=== PATIENT | male | born 1965 | race Caucasian/White ===

== ENCOUNTER 2017-12-26 11:55 | Emergency (ER) | payer MEDICARE, MEDICAID ==
[~2017-12-26] VITALS: Ht 177.8 cm; Wt 92.7 kg
[~2017-12-26 11:55] MED LIST: BENZ1TAB7 PO; BISA10SU60 RC; BUPR150T6 PO; DEXT20TA6 PO; FLUC200T8 PO; GOLYS PO; LURA60TA2 PO; MAGN296S50 PO; MAGN400O6 PO; METF-438 PO; MIRT30TA8 PO; OMEP20TA5 PO; TEMA30CA5 PO; TEST200V10 IM
[2017-12-26 13:10] VITALS: BP 135/75
[2017-12-26 13:10] LABS: CLARITY,URINE SLIGHTLY CLOUDY (Clear); COLOR,URINE YELLOW (Yellow); GLUCOSE, URINE NEGATIVE (Neg); KETONES,URINE NEGATIVE (Neg); LEUKOCYTE ESTERASE ,URINE MODERATE (Neg); NITRITES, URINE POSITIVE (Neg); OCCULT BLOOD,URINE LARGE (Neg); PH,URINE 5.5 (4.8-8.0); PROTEIN,URINE NEGATIVE (Neg); UROBILINOGEN,URINE 0.2 E.U/dL (0.2-1.0)
[2017-12-26 13:11] LABS: ALANINE AMINOTRANSFERASE 36 U/L (12-78); ALBUMIN/GLOBULIN RATIO 0.9 (1.1-1.5); ALKALINE PHOSPHATASE 104 IU/L (46-116); ANION GAP 6 (8-16); ASPARTATE AMINO TRANSFERASE 28 U/L (10-37); BILIRUBIN,TOTAL 0.2 MG/DL (0.1-1.0); BLOOD UREA NITROGEN 9 MG/DL (7-18); BUN/CREATININE RATIO 11.8 (5.4-32.0); CALCIUM 8.7 MG/DL (8.5-10.1); CHLORIDE 100 MMOL/L (99-107); CREATININE 0.76 MG/DL (0.60-1.10); GLUCOSE 124 MG/DL (70-104); POTASSIUM 4.2 MMOL/L (3.5-5.1); SODIUM 135 MMOL/L (135-145); TOTAL CARBON DIOXIDE 29.3 MMOL/L (24-32); TOTAL PROTEIN 6.5 G/DL (6.4-8.2); eGFR > 90 ML/MIN
[2017-12-26 13:12] LABS: UA COLLECTION TYPE CLN CATCH MIDSTREAM
[2017-12-26 13:14] LABS: PARTIAL THROMBOPLASTIN TIME 28 SECONDS (22-32)
[2017-12-26 13:24] LABS: BACTERIA,URINE 4+ /HPF (Neg); SQUAMOUS EPITHELIAL CELL,UR FEW /LPF (FEW)
[2017-12-26 13:25] LABS: WBC,URINE 20-30 /HPF (0-4)
[2017-12-26 13:36] LABS: BASOPHILS % (AUTO) 0.2 % (0-1); EOSINOPHILS # (AUTO) 0.5 X10'3 (0-0.9); EOSINOPHILS % (AUTO) 3.3 % (0-6); HEMOGLOBIN 15.3 g/dl (14.0-17.9); LYMPHOCYTES # (AUTO) 1.5 X10'3 (1.1-4.8); LYMPHOCYTES % (AUTO) 10.3 % (21-51); MEAN CORPUSCULAR HGB CONC 33.3 % (33.0-36.5); MEAN PLATELET VOLUME 7.6 FL (7.4-10.4); MONOCYTES % (AUTO) 6.6 % (2-12); NEUTROPHILS # (AUTO) 11.7 X10'3 (1.8-7.7); NEUTROPHILS % (AUTO) 79.6 % (42-75); PLATELET COUNT 289 X10'3 (140-440); RED BLOOD COUNT 5.29 X10'6 (4.70-6.10); RED CELL DISTRIBUTION WIDTH 15.4 % (11.5-14.5); WHITE BLOOD COUNT 14.7 X10'3 (4.5-11.0)
[2017-12-26] MEDS ORDERED: CefTRIAXone 2gm/D5W 50ml 50 ML IV ONE (13:40)
[2017-12-26] MEDS ORDERED: CEPH-572 PO (13:44)
== END 2017-12-26 14:28 | disposition home or self-care (01) ==
LOC: ER 11:56
DX: N39.0 Urinary tract infection, site not specified (principal); R31.9 Hematuria, unspecified; E78.00 Pure hypercholesterolemia, unspecified; K21.9 Gastro-esophageal reflux disease without esophagitis; E11.9 Type 2 diabetes mellitus without complications; Z98.890 Other specified postprocedural states; Z88.5 Allergy status to narcotic agent; Z88.8 Allergy status to other drugs, medicaments and biological substances; Z79.899 Other long term (current) drug therapy; Z88.6 Allergy status to analgesic agent
CPT/HCPCS: 36415; 80053; 81001; 85025; 85610; 85730; 87077; 87088; 87186; 96365; 99285; J0696

== ENCOUNTER 2023-06-02 08:24 | Day surgery (SDC) | payer BC, MEDICAID ==
[2023-05-31 15:54] LABS: BASOPHILS # (AUTO) 0.1 X10'3 (0-0.2); BASOPHILS % (AUTO) 1.1 % (0-1); EOSINOPHILS # (AUTO) 0.5 X10'3 (0-0.9); EOSINOPHILS % (AUTO) 5.5 % (0-6); LYMPHOCYTES # (AUTO) 1.9 X10'3 (1.1-4.8); LYMPHOCYTES % (AUTO) 21.6 % (21-51); MEAN CORPUSCULAR HEMOGLOBIN 33.3 PG (27.0-31.0); MEAN CORPUSCULAR HGB CONC 34.2 g/dL (33.0-36.5); MEAN CORPUSCULAR VOLUME 97.6 FL (78-98); MEAN PLATELET VOLUME 7.3 FL (7.4-10.4); MONOCYTES # (AUTO) 0.9 X10'3 (0-0.9); MONOCYTES % (AUTO) 10.1 % (2-12); NEUTROPHILS # (AUTO) 5.3 X10'3 (1.8-7.7); NEUTROPHILS % (AUTO) 61.7 % (42-75); PRE OP HEMATOCRIT 44.8 % (42.0-52.0); PRE OP HEMOGLOBIN 15.3 g/dL (14.0-17.9); PRE OP PLATELET COUNT 241 X10'3 (140-440); PRE OP WHITE BLOOD COUNT 8.6 10'3 (4.8-10.8); RED BLOOD COUNT 4.59 X10'6 (4.70-6.10); RED CELL DISTRIBUTION WIDTH 13.6 % (11.5-14.5)
[2023-05-31 16:10] LABS: ALBUMIN 3.5 G/DL (3.4-5.0); ALBUMIN/GLOBULIN RATIO 1.1 (1.1-1.5); ALKALINE PHOSPHATASE 98 IU/L (46-116); BLOOD UREA NITROGEN 7 MG/DL (7-18); BUN/CREATININE RATIO 8.2 (10.0-20.0); CALCIUM 8.9 MG/DL (8.5-10.1); CHLORIDE 106 MMOL/L (99-107); CREATININE 0.85 MG/DL (0.60-1.10); PRE OP ALT 54 U/L (30-65); PRE OP ANION GAP 8 (8-16); PRE OP AST 37 U/L (10-37); PRE OP BILIRUB, TOTAL 0.5 MG/DL (0.0-1.0); PRE OP GLUCOSE 110 MG/DL (70-104); PRE OP POTASSIUM 4.6 MMOL/L (3.4-5.1); PRE OP SODIUM 143 MMOL/L (135-145); TOTAL CARBON DIOXIDE 29.3 MMOL/L (24-32); TOTAL PROTEIN 6.8 G/DL (6.4-8.2); eGFR > 90 ML/MIN
[~2023-06-02] VITALS: Ht 177.8 cm; Wt 80.3 kg
[2023-06-02] VITALS (12 sets, daily range): BP systolic 100–130; BP diastolic 49–78; PULSE 66–87; RESP 13–22; TEMP 97.9; O2SAT 93–100
[2023-06-02] MEDS: famotidine 20mg tablet PO ONE (05:30)
[~2023-06-02 08:24] MED LIST changes: +ATOR20TA66 PO; -BENZ1TAB7 PO; -BISA10SU60 RC; +BUPR-317 PO; -BUPR150T6 PO; -DEXT20TA6 PO; -FLUC200T8 PO; -GOLYS PO; -LURA60TA2 PO; -MAGN296S50 PO; -MAGN400O6 PO; -MIRT30TA8 PO; -OMEP20TA5 PO; +PRAZ1CAP5 PO; +SERT-432 PO; -TEMA30CA5 PO; -TEST200V10 IM
[2023-06-02] MEDS: ringers solution, lacted 1,000 ML IV SCH (10:05)
[2023-06-02] MEDS: cefazolin 2gm/D5W 100mL 100 ML IV ONE (10:05)
[2023-06-02 11:29] LABS: BILIRUBIN,URINE NEGATIVE (Neg); CLARITY,URINE CLEAR (Clear); COLOR,URINE YELLOW (Yellow); GLUCOSE, URINE NEGATIVE (Neg); KETONES,URINE NEGATIVE (Neg); LEUKOCYTE ESTERASE ,URINE NEGATIVE (Neg); NITRITES, URINE NEGATIVE (Neg); OCCULT BLOOD,URINE NEGATIVE (Neg); PH,URINE 7.5 (4.8-8.0); PROTEIN,URINE NEGATIVE (Neg); UROBILINOGEN,URINE 0.2 E.U/dL (0.2-1.0)
[2023-06-02 11:30] LABS: UA COLLECTION TYPE NON-SPECIFIED
[2023-06-02] MEDS ORDERED: bacitracin 15gm ointment TP ONE (11:30)
[2023-06-02] MEDS ORDERED: BUPIVAcaine/PF 2.5mg/ml (0.25%) 10ml vial ONE (11:30)
[2023-06-02] MEDS ORDERED: labetalol 20mg/4ml (5mg/ml) syringe IV PRN (12:40)
[2023-06-02] MEDS ORDERED: meperidine/PF 25mg/ml syringe IV PRN ×3 (12:40)
[2023-06-02] MEDS ORDERED: morphine 4 MG/ML inj SYRINge IV PRN (12:40)
[2023-06-02] MEDS ORDERED: proCHLORperazine 10 MG/2 ml inj IV PRN (12:40)
[2023-06-02] MEDS ORDERED: ringers solution, lacted 1,000 ML IV SCH (12:40)
[2023-06-02] MEDS ORDERED: enalaprilat dihydrate 2.5mg/2ml vial IV PRN (12:40)
[2023-06-02] MEDS ORDERED: ondansetron/PF 4mg/2ml inj IV PRN (12:40)
[2023-06-02] MEDS ORDERED: morphine 2 MG/ML inj. syringe IV PRN (12:40)
[2023-06-02] MEDS ORDERED: sevoflurane 250ml liquid IH ONE (13:15)
[2023-06-02] MEDS ORDERED: fentaNYL/PF 50MCG/1 ML 2ML syringe ONE (13:26)
[2023-06-02] MEDS ORDERED: MIDAZolam 1 MG/ML 5ML VIAL ONE (13:26)
[2023-06-02] MEDS ORDERED: BUPIVAcaine/PF 7.5mg/ml (0.75%) 10ml vial ONE (13:52)
[2023-06-02] MEDS ORDERED: ROPIVAcaine 0.2% (10 MG/5 ML) BOLUS INJECTION POPLITEAL PRN (15:15)
[2023-06-02] MEDS ORDERED: meperidine/PF 25mg/ml syringe ONE (15:32)
[2023-06-02] MEDS: bacitracin 15gm ointment TP ONE (15:37)
[2023-06-02] MEDS ORDERED: propofol inj 20 ML IV ONE (15:50)
[2023-06-02] MEDS: ROPIVAcaine 0.2%/PF PUMP/bolus 545 ML POPLITEAL SCH (16:24)
== END 2023-06-02 17:28 | disposition home or self-care (01) ==
LOC: PAS 08:24
PROVIDERS: ATTEND Podiatrist Foot & Ankle Surgery
DX: M20.42 Other hammer toe(s) (acquired), left foot (principal); M19.072 Primary osteoarthritis, left ankle and foot; M25.375 Other instability, left foot; E11.9 Type 2 diabetes mellitus without complications; E78.5 Hyperlipidemia, unspecified; F20.9 Schizophrenia, unspecified; I25.2 Old myocardial infarction; M19.90 Unspecified osteoarthritis, unspecified site; Z87.891 Personal history of nicotine dependence; Z86.73 Personal history of transient ischemic attack (TIA), and cerebral infarction without residual deficits; Z79.2 Long term (current) use of antibiotics; Z79.82 Long term (current) use of aspirin; Z79.84 Long term (current) use of oral hypoglycemic drugs; Z79.899 Other long term (current) drug therapy; Z98.890 Other specified postprocedural states; Z88.5 Allergy status to narcotic agent
CPT/HCPCS: 28285; 28300; 28309; 28750; 36415; 73620; 80053; 81003; 82948; 85025; 93005; A6223; C1713; J0690; J1100; J2175; J2250; J2405; J2704; J2795; J3010; J3490; J7030; J7120; Z7506; Z7508; Z7512; A4215; A4618; A6449; A7000

== ENCOUNTER 2025-02-19 09:27 | Emergency (ER) | payer BC, MEDICAID ==
[~2025-02-19] VITALS: Ht 177.8 cm; Wt 82.4 kg
[~2025-02-19 09:27] MED LIST changes: -BUPR-317 PO; +BUPR-726 PO
[2025-02-19 10:32] LABS: MEAN PLATELET VOLUME 7.6 FL (7.4-10.4); RED CELL DISTRIBUTION WIDTH 13.4 % (11.5-14.5)
[2025-02-19 10:35] LABS: CREATININE 0.72 MG/DL (0.60-1.10); TOTAL CARBON DIOXIDE 32.1 MMOL/L (24-32); eCRCL 115 ML/MIN; eGFR > 90 ML/MIN
--- NOTE | 2025-02-19 11:24 | Physician Documentation ---
History of Present Illness ~ Chief Complaint: Multiple Medical Complaints Stated Complaint: DIZZINESS/DIABETIC Time Seen by MD: 11:08 Primary Medical Doctor: Fabricio coley Mode of Arrival: POV, Ambulatory HPI 60 year old male with T2DM, depression, BPH came to the ER with chied c/o of light headedness, ongoing for 9 months. He experiences light headedness, whenever he stands, but denies falls, wobbly gait, headaches, tinnitus He is here bcos he wants to get his labs checked, as he hasnt seen his PCP for > 6 months he also wants to get screenings for cancer He had remote h/o right ear effusion, but currently denies right ear dischrge or fullness Medication Reconciliation Allergies: Coded Allergies: acetaminophen (Verified Adverse Reaction, Mild, CONSTIPATION, 02/19/25) hydrocodone (Verified Adverse Reaction, Mild, CONSTIPATION, 02/19/25) Uncoded Allergies: STRAWBERRIES (Allergy, Unknown, 06/30/14) Scheduled Atorvastatin Calcium (Atorvastatin Calcium), 1 TAB PO HS, (Reported) Bupropion HCl (Bupropion Xl), 450 MG PO QAM, (Reported) Metformin HCl (Metformin HCl), 1 TAB PO Q12H, (Reported) Prazosin Hcl (Prazosin Hcl), 1 CAP PO DAILY, (Reported) Sertraline HCl (Sertraline HCl), 1 TAB PO DAILY, (Reported) Past Medical History Past Medical History: High Cholesterol, GERD, BPH, Diabetes, Depression, Schizophrenia Past Surgical History: orthopedic surgeries Other Past Surgical History: Penile Plant Implant Surgery Smoking Status: Former smoker Alcohol Use: Occasionally Drug Use: none Lives In: Home Review of Systems All Other Systems at this time: Reviewed and Negative Physical Exam Vital Signs: Temperature: 98.1, Source: Temporal, Heart Rate: 80, Respiratory Rate: 14, BP: 140/86, Pulse Oximetry: 97, Weight: 82.400 Oxygen Flow Rate: 0 General Appearance: alert, no apparent distress EENT right ear- wax present, visible TM - appeared pale, no dischrge seen Respiratory: lungs clear, normal breath sounds Chest: no accessory muscle use Cardiovascular: regular rate, rhythm Cardiovascular s1, s2 present, no murmurs Gastrointestinal: normal palpation, non-tender Skin: warm/dry Orientation / Memory / CN: oriented x3, memory intact Coordination / Gait: normal finger to nose, normal gait Psych: appropriate Progress Results/Orders Results/Orders Orders - ELEANOR SHUKLA RES * Orthostatic Vitals* Q12H (02/19/25 11:17) Completed Orders - ELEANOR SHUKLA RES Electrocardiogram (02/19/25 11:17) Vital Signs 02/19/25 02/19/25 02/19/25 02/19/25 09:44 11:11 11:11 11:34 Temp 98.1 Pulse 80 80 74 78 83 Resp 18 14 B/P (MAP) 133/72 140/86 (104) 122/73 123/72 123/78 Pulse Ox 96 97 O2 Flow Rate 0 0 Laboratory Tests Test 02/19/25 10:07 02/19/25 11:05 White Blood Count 9.1 Red Blood Count 4.84 Hemoglobin 15.7 Hematocrit 45.9 Mean Corpuscular Volume 94.8 Mean Corpuscular Hemoglobin 32.4 H Mean Corpuscular Hemoglobin Concent 34.2 Red Cell Distribution Width 13.4 Platelet Count 244 Mean Platelet Volume 7.6 Neutrophils (%) (Auto) 64.2 Lymphocytes (%) (Auto) 16.6 L Monocytes (%) (Auto) 13.6 H Eosinophils (%) (Auto) 4.7 Basophils (%) (Auto) 0.9 Neutrophils # (Auto) 5.8 Lymphocytes # (Auto) 1.5 Monocytes # (Auto) 1.2 H Eosinophils # (Auto) 0.4 Basophils # (Auto) 0.1 CBC Comment Sodium Level 140 Potassium Level 4.6 Chloride Level 106 Carbon Dioxide Level 32.1 H Anion Gap 2 L Blood Urea Nitrogen 9 Creatinine 0.72 Estimated GFR/1.73 m2 > 90 BUN/Creatinine Ratio 12.5 Glucose Level 142 H Calcium Level 8.8 Total Bilirubin 0.3 Aspartate Amino Transf (AST/SGOT) 29 Alanine Aminotransferase (ALT/SGPT) 49 Alkaline Phosphatase 91 Total Protein 6.6 Albumin 3.3 L Globulin 3.3 Albumin/Globulin Ratio 1.0 L Lipase 44 Chemistry Comments Urine Specimen Description Voided Urine Color Straw Urine Clarity Clear Urine pH 7.0 Urine Specific [place] <=1.005 Urine Protein Negative Urine Glucose (UA) Negative Urine Ketones Negative Urine Occult Blood Negative Urine Nitrite Negative Urine Bilirubin Negative Urine Urobilinogen 0.2 Urine Leukocyte Esterase Negative Urine Culture Indicated Not ind Volume Urine Centrifuged 10 ml Urine Comment Medical Decision Making Additional information obtaine: old records Findings Light headedness Differential Dx:Considerations: Include: other (Light headedness, acute on chronic sinusitis) Additional Information 60 year old male with T2DM, depression, BPH came to the ER with chied c/o of light headedness, ongoing for 9 months. He experiences light headedness, whenever he stands, but denies falls, wobbly gait, headaches, tinnitus He is here bcos he wants to get his labs checked, as he hasnt seen his PCP for > 6 months he also wants to get screenings for cancer CBC, CMP are normal EKG- RBBB, and LAFB Orthostats- Negativ patient has no acute medical condition that requires admission. For light headedness, he is recommended to have adequate hydration, wear compression stockings, and to f/u with his PCP for routine cancer screenings, and recommen ded to discuss with his PCP regarding getting williams echo for RBBB he has sinus pain, and nasal dischrge with previous h/o sinusitis- likely symptoms could be 2/2 acute sinusitis Departure Time of Disposition: 11:47 Disposition: 01 HOME / SELF CARE / HOMELESS Impression: Primary Impression: Sinusitis, acute Condition: Stable Discharge Instructions: Dizziness, Ednd-tn-Isum, Sinus Infection, Adult Additional Instructions: For light headedness, he is recommended to have adequate hydration, wear compression stockings, and to f/u with his PCP for routine cancer screenings, recommended to discuss with his PCP regarding getting williams echo for RBBB amoxyclav, and medrol dose dalia prescribed for sinusitis Referrals: NO PRIMARY CARE PROVIDER (PCP) Prescriptions Lactobacillus Rhamnosus (Culturelle) 10 Billion Cell Capsule 1 CAP PO DAILY for 30 Days, #30 CAP 0 Refills Prov: PUTTAM,ELEANOR, RES 02/19/25 Amox Tr/Potassium Clavulanate 875/125 MG (Augmentin 875/125 MG) 875 Mg-125 Mg Tablet 1 TAB PO BID, #14 TAB Prov: PUTTAM,HARIVARSHA, RES 02/19/25 Methylprednisolone (Medrol Dosepak) 4 Mg Tab.ds.pk 0 PO UD, #21 TAB 0 Refills take 6 Pills Day 1, 5 Pills Day 2, 4 Pills Day 3, 3 Pills Day 4, 2 Pills Day 5 and 1 pill Day 6 Prov: ELEANOR SHUKLA, RES 02/19/25 Education Educated: Patient Educated regarding: diagnosis, treatment, need for follow up Signature Scribe Signature: b Attestation: Findinds, assessment, plan, and disposition d/w ELEANOR Wick MD, RES Feb 19, 2025 11:24
--- NOTE | 2025-02-19 11:30 | ELECTROCARDIOGRAPH REPORT ---
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
[2025-02-19 11:31] LABS: LEUKOCYTE ESTERASE ,URINE NEGATIVE (Neg); NITRITES, URINE NEGATIVE (Neg); OCCULT BLOOD,URINE NEGATIVE (Neg)
[2025-02-19 11:34] LABS: UA COLLECTION TYPE VOIDED
[2025-02-19 12:00] VITALS: BP 123/78; PULSE 75; RESP 14; TEMP 98; O2SAT 98
[2025-02-19] MEDS ORDERED: AMOX-580 PO (12:01)
[2025-02-19] MEDS ORDERED: METH4TAB81 PO (12:01)
[2025-02-19] MEDS ORDERED: LACT1CAP26 PO (12:01)
== END 2025-02-19 12:01 | disposition home or self-care (01) ==
LOC: ER 09:27
DX: J01.90 Acute sinusitis, unspecified (principal); K21.9 Gastro-esophageal reflux disease without esophagitis; F32.A Depression, unspecified; F20.9 Schizophrenia, unspecified; E78.00 Pure hypercholesterolemia, unspecified; E11.9 Type 2 diabetes mellitus without complications; Z88.5 Allergy status to narcotic agent; Z88.8 Allergy status to other drugs, medicaments and biological substances; Z79.899 Other long term (current) drug therapy; Z79.84 Long term (current) use of oral hypoglycemic drugs; Z72.89 Other problems related to lifestyle
CPT/HCPCS: 36415; 80053; 81003; 83690; 85025; 93005; 99284